=== PATIENT | male | born 1975 | race Caucasian/White ===

== ENCOUNTER 2022-10-05 07:19 | Outpatient (REF) | payer MEDICARE, MEDICAID, SELFPAY ==
[2022-10-05 07:30] LABS: Appearance Urine Turbid; Color Urine Yellow; Glucose Urine UA Negative (Negative); Leukocyte Esterase Urine Large (3+) (Negative); Nitrite Urine Positive (Negative); Specific Gravity - Urine 1.015 (1.005-1.025); UMIC TRIGGER UA YES; Urine Blood Large (3+) (Negative); Urine Ketones Negative (Negative); Urine Protein 300 (3+) mg/dL (Neg-Trace)
[2022-10-05 07:43] LABS: Bacteria Urine 4+ (None Seen); RBC Urine >20 /HPF (0-2); WBC Clumps Urine Present; WBC Urine >50 /HPF (0-5)
== END 2022-10-05 07:20 | disposition home or self-care (01) ==
LOC: HO.WMHL 07:19
PROVIDERS: Visit Provider Nurse Practitioner Adult Health
DX: R50.9 Fever, unspecified (principal)
CPT/HCPCS: 81001; 87086

== ENCOUNTER 2024-03-07 16:43 | Outpatient (REF) | payer MEDICAID, SELFPAY | END 2024-03-07 16:44 | disposition home or self-care (01) | LOC: HO.WMHL 16:43 | PROVIDERS: PCP Nurse Practitioner Acute Care; Visit Provider Nurse Practitioner Acute Care | DX: Z13.89 Encounter for screening for other disorder (principal) | CPT/HCPCS: 87493 ==